=== PATIENT | male | born 1980 | race Caucasian/White ===

== ENCOUNTER 2019-11-19 12:53 | Emergency (ER) | payer OTHER ==
--- NOTE | 2019-11-19 13:35 | ER Document Report ---
ED Medical Screen (RME) - General Mode of Arrival: Ambulatory Information source: Patient <LORRIEIzzyCHARISSAKATERINEESTEBAN - Last Filed: 11/19/19 13:34> <KHADAR DENTON JR - Last Filed: 11/19/19 16:43> - General Chief Complaint: Difficulty Swallowing Stated Complaint: DIFFICULTY SWALLOWING Time Seen by Provider: 11/19/19 13:30 Notes: 39-year-old male presented to ED for complaint of unable to swallow. He states he had an endoscopy in August they did not find anything. He states yesterday he was eating barbecue when he choked on the barbecue and has not been able to swallow anything to include water since then. He states his symptoms he swallows that he spits it back up. He is not even able to swallow his saliva according to the patient. He does not smoke occasionally drinks and does not use any illicit drugs. He states he does not have any other past medical history. I have ordered blood strep and CT of soft tissue neck. He will be seen by another provider. Do not see any swelling to the tonsils tongue or throat I have greeted and performed a rapid initial assessment of this patient. A comprehensive ED assessment and evaluation of the patient, analysis of test results and completion of medical decision making process will be conducted by an additional ED providers. (ESTEBAN PENA) - Related Data Allergies/Adverse Reactions: No Known Allergies Allergy (Verified 11/19/19 13:30) Physical Exam - Vital signs Vitals: Temp Pulse Resp BP Pulse Ox 98.2 F 108 H 20 140/99 H 100 11/19/19 13:00 11/19/19 13:00 11/19/19 13:00 11/19/19 13:00 11/19/19 13:00 Course - Laboratory Result Diagrams: 11/19/19 13:55 11/19/19 13:55 <KHADAR DENTON JR - Last Filed: 11/19/19 16:43> - Vital Signs Vital signs: Temp Pulse Resp BP Pulse Ox 98.2 F 108 H 20 140/99 H 100 11/19/19 13:00 11/19/19 13:00 11/19/19 13:00 11/19/19 13:00 11/19/19 13:00 - Laboratory Laboratory results interpreted by me: 11/19/19 11/19/19 13:55 13:55 Glucose 128 H Calcium 10.5 H ALT 70 H Total Protein 9.1 H Albumin 5.4 H Urine Protein 30 H Urine Ketones 20 H Urine Blood SMALL H
[2019-11-19] MEDS ORDERED: NORMAL SALINE 1000 ML 1,000 ML IV ONE (13:36)
[2019-11-19 14:25] LABS: ALBUMIN 5.4 g/dL (3.5-5.0); ALKALINE PHOSPHATASE 74 U/L (38-126); ANION GAP 12 (5-19); ASPARTATE AMINO TRANSFERASE 37 U/L (17-59); BLOOD UREA NITROGEN 11 mg/dL (7-20); CALCIUM 10.5 mg/dL (8.4-10.2); CARBON DIOXIDE 26 mmol/L (22-30); CHLORIDE 105 mmol/L (98-107); GLUCOSE 128 mg/dL (75-110); POTASSIUM 4.5 mmol/L (3.6-5.0); TOTAL PROTEIN 9.1 g/dL (6.3-8.2)
[2019-11-19 14:40] LABS: APPEARANCE,URINE SLIGHTLY-CLOUDY; BILIRUBIN,URINE NEGATIVE (NEGATIVE); COLOR,URINE AMBER; GLUCOSE, URINE NEGATIVE (NEGATIVE); KETONES,URINE 20 mg/dL (NEGATIVE); LEUKOCYTE ESTERASE,URINE NEGATIVE (NEGATIVE); NITRITE,URINE NEGATIVE (NEGATIVE); PROTEIN,URINE 30 mg/dL (NEGATIVE); URINE SPECIFIC GRAVITY 1.031; UROBILINOGEN,URINE NEGATIVE mg/dL (<2.0)
[2019-11-19 14:44] LABS: ABSOLUTE EOSINOPHILS # (AUTO) 0.1 10^3/uL (0.0-0.6); ABSOLUTE LYMPHOCYTES (AUTO) 1.4 10^3/uL (0.5-4.7); ABSOLUTE MONOCYTES (AUTO) 0.6 10^3/uL (0.1-1.4); ABSOLUTE NEUT (AUTO) 6.6 10^3/uL (1.7-8.2); BASOPHILS % (AUTO) 0.4 % (0-2); EOSINOPHILS % (AUTO) 1.1 % (0-6); HEMOGLOBIN 16.6 g/dL (13.5-17.0); LYMPHOCYTES % (AUTO) 15.9 % (13-45); MEAN CORPUSCULAR HEMOGLOBIN 30.2 pg (27.0-33.4); MEAN CORPUSCULAR HGB CONC 34.5 g/dL (32.0-36.0); MEAN CORPUSCULAR VOLUME 88 fl (80-97); MONOCYTES % (AUTO) 7.1 % (3-13); PLATELET COUNT 240 10^3/uL (150-450); RED BLOOD COUNT 5.49 10^6/uL (4.35-5.55); RED CELL DISTRIBUTION WIDTH 13.3 % (11.5-14.0); SEGMENTED NEUTROPHILS % (AUTO) 75.5 % (42-78); TOTAL CELLS COUNTED % (AUTO) 100 %; WHITE BLOOD COUNT 8.8 10^3/uL (4.0-10.5)
--- NOTE | 2019-11-19 15:14 | RADIOLOGY REPORT (SQ) ---
EXAM DESCRIPTION: CT SOFT TISSUE NECK WITH IMAGES COMPLETED DATE/TIME: 11/19/2019 2:19 pm REASON FOR STUDY: Unable to swallow since last night even water COMPARISON: None. TECHNIQUE: Post IV contrasted scanning from skull base through lung apices with review of bone, soft tissue and lung windows. Reconstructed coronal and sagittal MPR images reviewed. All images stored on PACS. All CT scanners at this facility use dose modulation, iterative reconstruction, and/or weight based d osing when appropriate to reduce radiation dose to as low as reasonably achievable (ALARA). [facility]: Dose Right [facility]: CareDose [facility]: Dose Right [facility]: Teradose 4D [facility]: SmartPill CONTRAST TYPE AND DOSE: contrast/concentration: Isovue 350.00 mmol/ml; Total Contrast Delivered: 75. 0 ml; Total Saline Delivered: 55.0 ml RENAL FUNCTION: None required. The patient is less than 50 years old. RADIATION DOSE: CT Rad equipment meets quality standard of care and radiation dose reduction techniq ues were employed. CTDIvol: 14.4 mGy. DLP: 481 mGy-cm. . LIMITATIONS: None. FINDINGS: SKULL BASE: Intact. MAJOR SALIVARY GLANDS: No solid or cystic masses. No inflammatory changes. LYMPHADENOPATHY: No adenopathy. MUCOSAL MASSES OR ASYMMETRY: No mucosal masses or asymmetry. LARYNX/CORDS: No abnormal findings. VASCULAR STRUCTURES: The major vessels are patent. LUNG APICES: Clear. BONES: Intact. THYROID: Normal size. No masses. PARANASAL SINUSES: Clear. OTHER: No other significant finding. IMPRESSION: NO SIGNIFICANT FINDING IN THE SOFT TISSUES OF THE NECK. TECHNICAL DOCUMENTATION: JOB ID: [id number] Quality ID # [id number]: Final reports with documentation of one or more dose reduction techniques (e.g., Au tomated exposure control, adjustment of the mA and/or kV according to patient size, use of iterative reconstruction technique) 2010 [employer]- All Rights Reserved Reading location - IP/workstation name: [email or web address]
--- NOTE | 2019-11-19 16:42 | ER Document Report ---
ED General - General Chief Complaint: Difficulty Swallowing Stated Complaint: DIFFICULTY SWALLOWING Time Seen by Provider: 11/19/19 13:30 Mode of Arrival: Ambulatory Information source: Patient Notes: 11/19/19 13:31 - Nursing Note by SALVADOR NIX Accdonte Num: [id number] : 1980 Patient Age: 39 Pt arrives stating that last night at dinner while eating he choked. PT states that now he is having difficulty swallowing, even water. Pt reports have endoscopy last month with nothing being found. pt denies any sob. pt denies any other s/s of distress. pt is a&ox4 with e/u respirations. Initialized on 11/19/19 13:31 - END OF NOTE ED Medical Screen (Danette notes - General Chief Complaint: Difficulty Swallowing Stated Complaint: DIFFICULTY SWALLOWING Time Seen by Provider: 11/19/19 13:30 Mode of Arrival: Ambulatory Information source: Patient Notes: 39-year-old male presented to ED for complaint of unable to swallow. He states he had an endoscopy in August they did not find anything. He states yesterday he was eating barbecue when he choked on the barbecue and has not been able to swallow anything to include water since then. He states his symptoms he swallows that he spits it back up. He is not even able to swallow his saliva according to the patient. He does not smoke occasionally drinks and does not use any illicit drugs. He states he does not have any other past medical history. I have ordered blood strep and CT of soft tissue neck. He will be seen by another provider. Do not see any swelling to the tonsils tongue or throat TRAVEL OUTSIDE OF THE [place] IN LAST 30 DAYS: No - HPI Onset: This morning Onset/Duration: Sudden, Persistent, Worse Quality of pain: Achy Severity: Moderate Pain Level: 3 Associated symptoms: None Exacerbated by: Food Relieved by: Denies Similar symptoms previously: No Recently seen / treated by doctor: No - Related Data Allergies/Adverse Reactions: No Known Allergies Allergy (Verified 11/19/19 13:30) Past Medical History - General Information source: Patient - Social History Smoking Status: Never Smoker Cigarette use (# per day): No Chew tobacco use (# tins/day): No Smoking Education Provided: No Frequency of alcohol use: None Drug Abuse: None Lives with: Family Family History: Reviewed & Not Pertinent Patient has suicidal ideation: No Patient has homicidal ideation: No Review of Systems - Review of Systems Constitutional: No symptoms reported EENT: No symptoms reported Cardiovascular: See HPI, Heart racing Respiratory: No symptoms reported Gastrointestinal: See HPI, Abdominal pain Genitourinary: No symptoms reported Male Genitourinary: No symptoms reported Musculoskeletal: No symptoms reported Skin: No symptoms reported Hematologic/Lymphatic: No symptoms reported Neurological/Psychological: No symptoms reported Physical Exam - Vital signs Vitals: Temp Pulse Resp BP Pulse Ox 98.2 F 108 H 20 140/99 H 100 11/19/19 13:00 11/19/19 13:00 11/19/19 13:00 11/19/19 13:00 11/19/19 13:00 Interpretation: Hypertensive, Tachycardic - HEENT Head: Normocephalic, Atraumatic Eyes: Normal Pupils: PERRL Mouth/Lips: Normal Mucous membranes: Normal Pharynx: Normal Neck: Normal - Respiratory Respiratory status: No respiratory distress Chest status: Nontender Breath sounds: Normal Chest palpation: Normal - Cardiovascular Rhythm: Tachycardia Heart sounds: Normal auscultation Murmur: No Friction rub: No Zaid's crunch: No - Abdominal Inspection: Normal Distension: No distension Bowel sounds: Normal Tenderness: Nontender Organomegaly: No organomegaly - Rectal Prostate: Other - deferred - Genitourinary Scrotum: Other - deferred - Back Back: Normal - Extremities General upper extremity: Normal inspection General lower extremity: Normal inspection - Neurological Neuro grossly intact: Yes Cognition: Normal Orientation: AAOx4 Eyad Coma Scale Eye Opening: Spontaneous [place] Coma Scale Verbal: Oriented Eyad Coma Scale Motor: Obeys Commands Eyad Coma Scale Total: 15 Speech: Normal Motor strength normal: LUE, RUE, LLE, RLE Sensory: Normal - Psychological Associated symptoms: Normal affect - Skin Skin Temperature: Warm Skin Moisture: Dry Course - Vital Signs Vital signs: Temp Pulse Resp BP Pulse Ox 98.7 F 79 16 118/64 98 11/19/19 22:24 11/19/19 22:24 11/19/19 22:24 11/19/19 22:24 11/19/19 22:24 - Laboratory Result Diagrams: 11/19/19 13:55 11/19/19 13:55 Laboratory results interpreted by me: 11/19/19 11/19/19 13:55 13:55 Glucose 128 H Calcium 10.5 H ALT 70 H Total Protein 9.1 H Albumin 5.4 H Urine Protein 30 H Urine Ketones 20 H Urine Blood SMALL H - Diagnostic Test Radiology reviewed: Reports reviewed Critical Care Note - Critical Care Note Comments: This case was discussed with Dr. Limon at 1830 and he advised yusuf test for this patient rapid test and he will evaluate him for surgery. Discharge - Discharge Clinical Impression: Esophageal stricture, Distal esophageal obstruction due to foreign body Condition: Good Disposition: ADMITTED INPATIENT Admitting Provider: Surgicalist - [facility] Admitted: Surgical Floor Additional Instructions: Diet as tolerated. Be sure to chew food thoroughly Forms: ASU Anesthesia D/C Instruction, Discharge POC-Surgical Service
--- NOTE | 2019-11-19 18:32 | RADIOLOGY REPORT (SQ) ---
EXAM DESCRIPTION: BARIUM SWALLOW ESOPHAGUS IMAGES COMPLETED DATE/TIME: 11/19/2019 6:21 pm REASON FOR STUDY: choking sensation COMPARISON: None. TECHNIQUE: Under fluoroscopic guidance, patient ingested water-soluble contrast. Fluoroscopic spot i mages and routine radiographic images acquired and stored on PACS. 12 MM BARIUM TABLET GIVEN: No LIMITATIONS: None. FLUOROSCOPY TIME: 2 minutes 8 images saved to PACS. FINDINGS: NEUROMUSCULAR COORDINATION OF SWALLOW: Normal. No aspiration. ESOPHAGEAL MOTILITY: Normal peristalsis. No esophageal spasm. ESOPHAGEAL MUCOSA: Normal mucosa without masses or ulceration. GASTRO-ESOPHAGEAL JUNCTION: There is a filling defect in the distal esophagus causing near complete o cclusion. Trace amount of contrast passes by this occlusion and into the stomach. No hiatal hernia or reflux. NON-GI TRACT STRUCTURES: No significant finding. OTHER: No other significant finding. IMPRESSION: OBSTRUCTION OF THE DISTAL ESOPHAGUS WITH ONLY TRACE AMOUNT OF CONTRAST ENTERING IN THE S TOMACH. . COMMENT: NONE Quality ID 145: Final reports for procedures using fluoroscopy that document radiation exposure keely orestes, or exposure time and number of fluorographic images (if radiation exposure indices are not avail able) TECHNICAL DOCUMENTATION: JOB ID: [id number] [place]-72 2010 [email or web address]- All Rights Reserved Reading location - IP/workstation name: [email or web address] [id number]
--- NOTE | 2019-11-19 19:57 | PDOC H&P ---
History of Present Illness Admission Date/PCP: 11/19/19 19:40 Patient complains of: difficulty swallowing History of Present Illness: AYLA NAVARRETE is a 39 year old male Pt arrives stating that last night at dinner while eating he choked. PT states that now he is having difficulty swallowing, even water. Pt reports have endoscopy last month with nothing being found. pt denies any sob. pt denies any other s/s of distress. pt is a&ox4 with e/u respirations. Social History Smoking Status: Never Smoker Family History Parental Family History Reviewed: No Children Family History Reviewed: NA Sibling(s) Family History Reviewed.: NA Medication/Allergy Allergies/Adverse Reactions: No Known Allergies Allergy (Verified 11/19/19 13:30) Review of Systems Constitutional: ABSENT: as per HPI, anorexia, chills, fatigue, fever(s), headache(s), night sweats, weakness, weight gain, weight loss, other Eyes: ABSENT: as per HPI, visual disturbances, other Ears: ABSENT: as per HPI, hearing changes, other Nose, Mouth, and Throat: ABSENT: as per HPI, headache(s), mouth pain, sore throat, vertigo, other Breasts: ABSENT: as per HPI, other Cardiovascular: ABSENT: as per HPI, chest pain, dyspnea on exertion, edema, orthropnea, palpitations, other Respiratory: ABSENT: as per HPI, cough, dyspnea, hemoptysis, sputum, other Gastrointestinal: PRESENT: dysphagia, heartburn Genitourinary: ABSENT: as per HPI, difficulty urinating, dysuria, hematuria, nocturia, other Musculoskeletal: ABSENT: as per HPI, back pain, deformity, joint swelling, muscle weakness, other Integumentary: ABSENT: as per HPI, diaphoresis, erythema, lesions, pruritus, rash, wounds, other Neurological: ABSENT: as per HPI, abnormal gait, abnormal movements, abnormal speech, confusion, convulsions, dizziness, focal weakness, frequent falls, lack of coordination, memory loss, numbness, paresthesias, restless legs, syncope, tingling, tremor(s), vertigo, weakness, other Psychiatric: ABSENT: as per HPI, anxiety, depression, hallucinations, homidical ideation, suicidal ideation, other Endocrine: ABSENT: as per HPI, cold intolerance, flushing, heat intolerance, menstrual abnormalities, polydipsia, polyphagia, polyuria, other Hematologic/Lymphatic: ABSENT: as per HPI, easy bleeding, easy bruising, lymphadenopathy, other Allergic/Immunologic: ABSENT: as per HPI, seasonal rhinorrhea, other Physical Exam Vital Signs: Temp Pulse Resp BP Pulse Ox 98.2 F 108 H 20 140/99 H 100 11/19/19 13:00 11/19/19 13:00 11/19/19 13:00 11/19/19 13:00 11/19/19 13:00 Intake & Output 11/18/19 11/19/19 11/20/19 06:59 06:59 06:59 Intake Total 1000 Balance 1000 Weight 81.2 kg General appearance: PRESENT: no acute distress Head exam: PRESENT: normocephalic Eye exam: PRESENT: EOMI Ear exam: PRESENT: normal external ear exam Mouth exam: PRESENT: moist Neck exam: PRESENT: full ROM Respiratory exam: PRESENT: clear to auscultation nadira Cardiovascular exam: PRESENT: RRR Pulses: PRESENT: normal radial pulses, normal femoral pulses Vascular exam: PRESENT: normal capillary refill Breast: PRESENT: Normal GI/Abdominal exam: PRESENT: soft Rectal exam: PRESENT: deferred Extremities exam: PRESENT: full ROM Musculoskeletal exam: PRESENT: full ROM Neurological exam: PRESENT: alert, awake, oriented to person, oriented to place Psychiatric exam: PRESENT: appropriate affect Skin exam: PRESENT: dry Results Laboratory Results: 11/19/19 13:55 11/19/19 13:55 11/19/19 11/19/19 11/19/19 13:55 13:55 13:55 WBC 8.8 RBC 5.49 Hgb 16.6 Hct 48.0 MCV 88 MCH 30.2 MCHC 34.5 RDW 13.3 Plt Count 240 Seg Neutrophils % 75.5 Sodium 142.6 Potassium 4.5 Chloride 105 Carbon Dioxide 26 Anion Gap 12 BUN 11 Creatinine 1.09 Est GFR ( Amer) > 60 Glucose 128 H Calcium 10.5 H Total Bilirubin 1.0 AST 37 Alkaline Phosphatase 74 Total Protein 9.1 H Albumin 5.4 H Urine Color SAMIR Urine Appearance SLIGHTLY-CLOUDY Urine pH 5.0 Ur Specific [place] 1.031 Urine Protein 30 H Urine Glucose (UA) NEGATIVE Urine Ketones 20 H Urine Blood SMALL H Urine Nitrite NEGATIVE Ur Leukocyte Esterase NEGATIVE Urine WBC (Auto) 1 Urine RBC (Auto) 2 Impressions: Soft Tissue Neck CT 11/19/19 13:32 IMPRESSION: NO SIGNIFICANT FINDING IN THE SOFT TISSUES OF THE NECK. Esophagus X-Ray 11/19/19 16:45 IMPRESSION: OBSTRUCTION OF THE DISTAL ESOPHAGUS WITH ONLY TRACE AMOUNT OF CONTRAST ENTERING IN THE STOMACH. . Assessment & Plan - Time Anticipated Discharge Disposition: Home, Self Care Anticipated Discharge Timeframe: within 24 hours - Plan Summary Plan Summary: impression esophageal food bolus plan upper endoscpy and removal of esophageal foreign body
--- NOTE | 2019-11-19 20:14 | EKG REPORT ---
SEVERITY:- ABNORMAL ECG - SINUS RHYTHM NONSPECIFIC T ABNORMALITIES, INFERIOR LEADS : Confirmed by: Yoshi Sylvester MD 19-Nov-2019 20:14:22
[2019-11-19] MEDS ORDERED: ONDANSETRON HCL INJ/PF 4 MG/2 ML SDV ONE (20:45)
[2019-11-19] MEDS ORDERED: MIDAZOLAM 2 MG/2 ML INJ ONE (20:45)
[2019-11-19] MEDS ORDERED: PROPOFOL INJ 200 MG/20 ML VIAL IV ONE (20:45)
[2019-11-19] MEDS ORDERED: DEXMEDETOMIDINE INJ 80 MCG/20 ML VIAL IV ONE (20:47)
--- NOTE | 2019-11-19 21:23 | Operative Report ---
Nonrecallable Operative Report DATE OF SURGERY: 11/19/19 PREOPERATIVE DIAGNOSIS: Esophageal food bolus POSTOPERATIVE DIAGNOSIS: Esophageal food bolus OPERATION: Endoscopy with removal of esophageal food bolus SURGEON: JOVAN MILTON ANESTHESIA: LMAC TISSUE REMOVED OR ALTERED: None COMPLICATIONS: None ESTIMATED BLOOD LOSS: 0 INTRAOPERATIVE FINDINGS: See note PROCEDURE: Patient was brought to the operating awake alert in stable condition placed on the operating table supine position given IV sedation is then placed in the left lateral decubitus position. The Olympus gastroscope was passed into the posterior pharynx and easily traversed the upper esophageal sphincters into the proximal esophagus. Once we reached the food bolus we noted that was at the distal esophagus and easily was pushed into the stomach. Scope was then passed into the stomach and the antrum pylorus and body were all examined and appeared to be normal the scope was then retroflexed and we noted the esophageal hiatus from below and appeared to be normal without evidence of strictures or masses. The scope was then slowly withdrawn. Patient tolerated well and he was returned to recovery in stable condition
--- NOTE | 2019-11-19 21:25 | Discharge Summary ---
Discharge Summary (SDC) - Discharge Final Diagnosis: Esophageal food bolus Date of Surgery: 11/19/19 Discharge Date: 11/19/19 Condition: Good Treatment or Instructions: I advised patient of n.p.o. status and he understands. This was done at 1840 .transfer patient to surgery Dr. Limon Discharge Diet: As Tolerated, Full Liquids Discharge Activity: Activity As Tolerated Report the Following to Your Physician Immediately: Increase in Pain, Unusual Bleeding
[2019-11-19] MEDS ORDERED: ONDANSETRON HCL INJ/PF 4 MG/2 ML SDV IV PRN (21:29)
[2019-11-19 22:34] VITALS: BP 118/64
== END 2019-11-19 22:38 | disposition other institution (70) ==
LOC: ER 12:53 → EH 19:40 → UNDOADMIN 19:40 → ER 22:38 → UNDODISIN 22:38
PROC: 0DC48ZZ Extirpation of Matter from Esophagogastric Junction, Via Natural or Artificial Opening Endoscopic (ICD-10-PCS; principal; 2019-11-19 20:48)
DX: T18.128A Food in esophagus causing other injury, initial encounter (principal); K22.2 Esophageal obstruction; R13.10 Dysphagia, unspecified; X58.XXXA Exposure to other specified factors, initial encounter; Z20.828 Contact with and (suspected) exposure to other viral communicable diseases
CPT/HCPCS: 93005; 99285; 96360; 43247; 36415; 87070; 87880; 85025; 80053; 81001; 74220; 70491; 93010; 00731; 99140; U0003; J2250; J2405; J7030; J2704; J3490; C9803; 731; 87635